=== PATIENT | male | born 1985 ===

== ENCOUNTER 2018-05-17 14:22 | Inpatient (IN) | payer SELFPAY ==
[~2018-05-17] VITALS: Ht 172.7 cm; Wt 94.8 kg
--- NOTE | 2018-05-17 14:34 | ER Report ---
History and Physical Time Seen By MD: 14:34 Hx. of Stated Complaint: DX WITH PANCREATITIS. HPI/ROS CHIEF COMPLAINT: Pancreatitis HISTORY OF PRESENT ILLNESS: 33-year-old male patient presents to emergency room with complaint of pancreatitis. Patient states that he woke up this morning having horrible abdominal pain. Patient states that seems to be more in the epigastric region. He denies having any pain anywhere else. He went to the urgent care and was evaluated there. He states that lab tests were done, EKG and was diagnosed with pancreatitis. He had a lipase of 9781. Patient also had an elevated white count 14,000. It was determined at that time that the patient should come here to the emergency room for further evaluation and likely admission. Patient denies any fevers or chills, nausea, vomiting or diarrhea. Patient states he last had something eat about 9:00 this morning. He has not taken any other medication. REVIEW OF SYSTEMS: Respiratory: No cough, no dyspnea. Cardiovascular: No chest pain, no palpitations. Gastrointestinal: As noted above Musculoskeletal: No back pain. Allergies: Coded Allergies: Penicillins (Verified Allergy, Unknown, 05/17/18) Home Meds No Active Prescriptions or Reported Meds Past Medical/Surgical History Patient has a past medical history of diabetes. Patient has no pertinent surgical history. Reviewed Nurses Notes: Yes Constitutional Vital Sign - Last 24 Hours 05/17/18 05/17/18 14:30 17:30 Temp 98.4 Pulse 97 85 Resp 20 20 B/P (MAP) 139/91 139/90 (106) Pulse Ox 94 94 O2 Delivery Room Air Physical Exam General Appearance: The patient is alert, has no immediate need for airway protection and no current signs of toxicity. Respiratory: Chest is non tender, lungs are clear to auscultation. Cardiac: regular rate and rhythm Gastrointestinal: Abdomen is soft and tender in the left upper quadrant, epigastric region, no masses, bowel sounds normal. Musculoskeletal: Neck: Neck is supple and non tender. Extremities have full range of motion and are non tender. Skin: No rashes or lesions. DIFFERENTIAL DIAGNOSIS: After history and physical exam differential diagnosis was considered for pancreatitis, choledocholithiasis. Medical Decision Making EKG/Imaging Imaging EXAMINATION: Limited right upper quadrant ultrasound Additional Pertinent history: Epigastric pain. COMPARISON STUDIES: CT exam pelvis done earlier in the day. FINDINGS: Gallbladder: no stones, sludge, wall thickening or pericholecystic fluid. Patient was tender during the exam. Liver: Upper limits normal size and 17.7 cm. Diffuse echogenic without a focal abnormality. Surface is smooth. Portal vein is patent. No ascites. Common duct: normal 2.8 mm. Pancreas: Obscured by bowel gas. Right kidney: negative Proximal IVC/Aorta: negative IMPRESSION: 1. Normal gallbladder and common bile duct. Patient was tender during the exam. 2. Liver diffuse echogenic consistent with fatty infiltration or chronic disease. No focal abnormality. 3. Pancreas obscured by bowel gas. Report Dictated By: Bladimir Gillis at 05/17/2018 5:19 PM Report E-Signed By: Bladimir Gillis at 05/17/2018 5:22 PM ABDOMEN/PELVIS WITH CONTRAST HISTORY: Abdominal pain. TECHNIQUE: CT abdomen and pelvis with intravenous contrast. One of the following dose optimization techniques was utilized in the performance of this exam: Automated exposure control; adjustment of the mA and/or kV according to the patient's size; or use of an iterative reconstruction technique. Specific details can be referenced in the facility's radiology CT exam operational policy. CONTRAST: 75 mL Isovue-370. COMPARISON: None. FINDINGS: Visualized lung bases: Negative. Hepatobiliary: Findings suggestive of hepatic steatosis. Otherwise negative. Spleen: Negative. Adrenals: Negative. Pancreas: Mild peripancreatic inflammation, compatible with acute pancreatitis. No focal fluid collections. No vascular abnormalities identified. Otherwise negative. Kidneys/: Negative. GI: There is scattered areas of chronic appearing fat attenuating wall thickening within the colon and distal ileum which are likely related to a remote chronic infectious/inflammatory process. No evidence for acute disease. Vessels/spaces/nodes: Negative. Bones/soft tissues: Negative. IMPRESSION: 1. Findings of uncomplicated acute pancreatitis. 2. Additional incidental/chronic findings, as above. Report Dictated By: Gilmer Bryant MD at 05/17/2018 3:33 PM Report E-Signed By: Gilmer Bryant MD at 05/17/2018 3:36 PM EXAMINATION: Limited right upper quadrant ultrasound Additional Pertinent history: Epigastric pain. COMPARISON STUDIES: CT exam pelvis done earlier in the day. FINDINGS: Gallbladder: no stones, sludge, wall thickening or pericholecystic fluid. Patient was tender during the exam. Liver: Upper limits normal size and 17.7 cm. Diffuse echogenic without a focal abnormality. Surface is smooth. Portal vein is patent. No ascites. Common duct: normal 2.8 mm. Pancreas: Obscured by bowel gas. Right kidney: negative Proximal IVC/Aorta: negative IMPRESSION: 1. Normal gallbladder and common bile duct. Patient was tender during the exam. 2. Liver diffuse echogenic consistent with fatty infiltration or chronic disease. No focal abnormality. 3. Pancreas obscured by bowel gas. Report Dictated By: Bladimir Gillis at 05/17/2018 5:19 PM Report E-Signed By: Bladimir Gillis at 05/17/2018 5:22 PM ED Course/Re-evaluation ED Course Patient was admitted to exam room, history and physical were obtained. D ifferential diagnosis was considered. On examination patient does have tenderness in the left upper quadrant, and epigastric area. With patient having lab work done at urgent care which indicated pancreatitis a CT scan of the abdomen and pelvis was done. Patient had an IV started and received 4 mg of morphine. Patient did have some nausea and vomiting. CT scan showed on-call located pancreatitis with inflammation being in the left upper quadrant and epigastric region. I discussed case with Dr. Gonzalez, hospitalist. He requested that a ultrasound of the gallbladder be done to make sure there is not any retained stones or blockage of the common bile duct. That was done which no gallstones, no sludge in the gallbladder. I discussed this with Dr. Gonzalez, who agreed to accept the patient for admission. I discussed this with the patient who verbalized understanding and agreement. Decision to Disposition Date: May 17, 2018 Decision to Disposition Time: 17:38 Depart Departure Latest Vital Signs Vital Signs Date Time Temp Pulse Resp B/P (MAP) Pulse Ox O2 Delivery O2 Flow Rate FiO2 05/17/18 17:30 85 20 139/90 (106) 94 Room Air 05/17/18 14:30 98.4 Impression: Primary Impression: Pancreatitis Additional Impression: Type 2 diabetes mellitus Condition: Condition Unchanged Disposition: Admitted from ER New Scripts No Active Prescriptions or Reported Meds Problem Qualifiers Primary Impression: Pancreatitis Chronicity: acute Pancreatitis type: unspecified pancreatitis type Acute pancreatitis complication: unspecified Qualified Codes: K85.90 - Acute pancreatitis without necrosis or infection, unspecified Additional Impression: Type 2 diabetes mellitus Diabetes mellitus intermodal owner operator truck driver insulin use: without intermodal owner operator truck driver use Diabetes mellitus complication status: without complication Qualified Codes: E11.9 - Type 2 diabetes mellitus without complications CELESTINO MARROQUIN May 17, 2018 14:34
[2018-05-17] MEDS ORDERED: MORPHINE 4 MG/ML SDV IVP ONE ×2 (14:40→15:45)
[2018-05-17] MEDS ORDERED: ONDANSETRON 4 MG/2 ML VIAL IVP ONE ×2 (14:40→16:00)
[2018-05-17] MEDS ORDERED: IOPAMIDOL 76% 75 ML INFUS BTL 75 ML ONE (14:55)
--- NOTE | 2018-05-17 15:40 | RADIOLOGY IMAGING REPORT ---
FACILITY: [facility] PATIENT NAME: John Engel : 1985 MR: [id number] V: [id number] EXAM DATE: [id number] ORDERING PHYSICIAN: CELESTINO MARROQUIN TECHNOLOGIST: Location: [facility] [place] Patient: John Engel : 1985 Visit/Account:[id number] Date of Sevice: 05/17/2018 ABDOMEN/PELVIS WITH CONTRAST HISTORY: Abdominal pain. TECHNIQUE: CT abdomen and pelvis with intravenous contrast. One of the following dose optimization techniques was utilized in the performance of this exam: Autom ated exposure control; adjustment of the mA and/or kV according to the patient's size; or use of an i terative reconstruction technique. Specific details can be referenced in the facility's radiology C T exam operational policy. CONTRAST: 75 mL Isovue-370. COMPARISON: None. FINDINGS: Visualized lung bases: Negative. Hepatobiliary: Findings suggestive of hepatic steatosis. Otherwise negative. Spleen: Negative. Adrenals: Negative. Pancreas: Mild peripancreatic inflammation, compatible with acute pancreatitis. No focal fluid colle ctions. No vascular abnormalities identified. Otherwise negative. Kidneys/: Negative. GI: There is scattered areas of chronic appearing fat attenuating wall thickening within the colon an d distal ileum which are likely related to a remote chronic infectious/inflammatory process. No evide nce for acute disease. Vessels/spaces/nodes: Negative. Bones/soft tissues: Negative. IMPRESSION: 1. Findings of uncomplicated acute pancreatitis. 2. Additional incidental/chronic findings, as above. Report Dictated By: Gilmer Bryant MD at 05/17/2018 3:33 PM Report E-Signed By: Gilmer Bryant MD at 05/17/2018 3:36 PM WSN:[id number]
--- NOTE | 2018-05-17 17:26 | RADIOLOGY IMAGING REPORT ---
FACILITY: [facility] - [place] PATIENT NAME: John Engel : 1985 MR: [id number] V: [id number] EXAM DATE: [id number] ORDERING PHYSICIAN: CELESTINO MARROQUIN TECHNOLOGIST: Location: [facility] [place] Patient: John Engel : 1985 Visit/Account:[id number] Date of Sevice: 05/17/2018 EXAMINATION: Limited right upper quadrant ultrasound Additional Pertinent history: Epigastric pain. COMPARISON STUDIES: CT exam pelvis done earlier in the day. FINDINGS: Gallbladder: no stones, sludge, wall thickening or pericholecystic fluid. Patient was tender during t he exam. Liver: Upper limits normal size and 17.7 cm. Diffuse echogenic without a focal abnormality. Surface i s smooth. Portal vein is patent. No ascites. Common duct: normal 2.8 mm. Pancreas: Obscured by bowel gas. Right kidney: negative Proximal IVC/Aorta: negative IMPRESSION: 1. Normal gallbladder and common bile duct. Patient was tender during the exam. 2. Liver diffuse echogenic consistent with fatty infiltration or chronic disease. No focal abnormalit y. 3. Pancreas obscured by bowel gas. Report Dictated By: Bladimir Gillis at 05/17/2018 5:19 PM Report E-Signed By: Bladimir Gillis at 05/17/2018 5:22 PM WSN:[id number]
[2018-05-17 18:27] VITALS: BP 132/92
[2018-05-17] MEDS ORDERED: HYDROmorphone PCA 6 MG/30 ML IV PRN (18:35)
[2018-05-17] MEDS ORDERED: NALOXONE HCL 0.4 MG/ML VIAL IVP PRN (18:45)
[2018-05-17] MEDS: NS(*) 0.9% 1000 ML BAG 1,000 ML IV PRN (18:53)
--- NOTE | 2018-05-17 18:54 | History & Physical ---
History of Present Illness Chief Complaint Abdominal pain History of Present Illness 33yo male with PMHx significant for diet controlled type 2 DM. He reports onset of severe abdominal pain early this AM. It is associated with poor appetite, but no N/V. He denies any fevers or chills. No hematemesis, hematochezia, melena. He denies any urinary symptoms. He does not take any medications (prescription or OTC). He does not drink alcohol or take any illicit drugs. He reports having a headache a few days ago, but denies any other problems in recent past. He was evaluated in the ER and found to have elevated lipase with CT findings consistent with acute pancreatitis. He was recommended for admission. History Problems: (1) Type 2 diabetes mellitus Status: Chronic Comment: Diet controlled Home Meds No Active Prescriptions or Reported Meds Allergies: Coded Allergies: Penicillins (Verified Allergy, Unknown, 05/17/18) Hx Smoking: No Caffeine Intake: Soda Caffeine/Cups Per Day: 1/day Hx Alcohol Use: No Hx Substance Use Disorder: No Social Drug Use: Never History of IV Drug Use: No Review of Systems Constitutional: No Fever, No Chills, No Night Sweats Neurological: No Syncope, No Weakness Eyes: No Vision Change, No Loss of Vision ENT: No Hearing Loss, No Sinus Congestion, No Sore Throat, No Ear Ache Cardiovascular: No Chest Pain, No Palpitations, No Orthostatic Hypotension Respiratory: No Shortness of Breath, No Cough, No Wheezing Gastrointestinal: No Nausea, No Vomiting, No Diarrhea, No Hematemesis, No Hematochezia, No Melena; Abdominal Pain Genitourinary: No Dysuria, No Hematuria, No Urinary Incontinence Musculoskeletal: No Sprain, No Strain, No Impaired Mobility Psychiatric: No Depression, No Anxiety Exam Vital Signs Vital Signs Date Time Temp Pulse Resp B/P (MAP) Pulse Ox O2 Delivery O2 Flow Rate FiO2 05/17/18 18:27 97.8 97 16 132/92 (105) 97 Room Air General Appearance: Alert, Awake Neuro: No Gross deficits Eyes: PERRLA, Other (sclera anicteric) ENT: Moist Mucous Membranes, Oropharynx Clear Neck: No Masses Cardiovascular: Regular Rate and Rhythm, No Edema, No JVD Respiratory: Clear to Auscultation Chest: No Tenderness GI: Other (Diffuse tenderness with some guarding/no rebound/BS present) : No CVA Tenderness Lymph: No Adenopathy Extremities: Warm, Perfused Integumentary: Skin Intact without Lesion / Mass Psych: Alert & Oriented X3 Medical Decision Making Data Points Item Value Date Time White Blood Count 14.0 k/uL H 05/17/18 1318 Hemoglobin 20.6 g/dL H 05/17/18 1318 Hematocrit 50.3 % 05/17/18 1318 Platelet Count 261 K/uL 05/17/18 1318 Sodium Level 134 mmol/L L 05/17/18 1318 Potassium Level 3.6 mmol/L 05/17/18 1318 Chloride Level 97 mmol/L L 05/17/18 1318 Carbon Dioxide Level 15 mmol/L L 05/17/18 1318 Blood Urea Nitrogen 10 mg/dl 05/17/18 1318 Creatinine 0.60 mg/dl L 05/17/18 1318 Glomerular Filtration Rate Calc > 60.0 05/17/18 1318 Random Glucose 351 mg/dl H 05/17/18 1318 Calcium Level 8.9 mg/dl 05/17/18 1318 Total Bilirubin 0.9 mg/dl 05/17/18 1318 Aspartate Amino Transf (AST/SGOT) 27 U/L 05/17/18 1318 Alanine Aminotransferase (ALT/SGPT) 57 U/L H 05/17/18 1318 Alkaline Phosphatase 151 U/L H 05/17/18 1318 Troponin I < 0.012 ng/ml 05/17/18 1318 Total Protein 8.6 g/dl H 05/17/18 1318 Albumin 3.8 g/dl 05/17/18 1318 Amylase Level 556 U/L H 05/17/18 1318 Lipase 9781 U/L H 05/17/18 1318 EKG / Imaging Imaging PATIENT NAME: John Engel : 1985 MR: [id number] V: [id number] EXAM DATE: ORDERING PHYSICIAN: CELESTINO MARROQUIN TECHNOLOGIST: Location: [facility] - [place] Patient: John Engel : 1985 Visit/Account:[id number] Date of Sevice: 05/17/2018 ABDOMEN/PELVIS WITH CONTRAST HISTORY: Abdominal pain. TECHNIQUE: CT abdomen and pelvis with intravenous contrast. One of the following dose optimization techniques was utilized in the performance of this exam: Automated exposure control; adjustment of the mA and/or kV according to the patient's size; or use of an iterative reconstruction technique. Specific details can be referenced in the facility's radiology CT exam operational policy. CONTRAST: 75 mL Isovue-370. COMPARISON: None. FINDINGS: Visualized lung bases: Negative. Hepatobiliary: Findings suggestive of hepatic steatosis. Otherwise negative. Spleen: Negative. Adrenals: Negative. Pancreas: Mild peripancreatic inflammation, compatible with acute pancreatitis. No focal fluid collections. No vascular abnormalities identified. Otherwise negative. Kidneys/: Negative. GI: There is scattered areas of chronic appearing fat attenuating wall thickening within the colon and distal ileum which are likely related to a remote chronic infectious/inflammatory process. No evidence for acute disease. Vessels/spaces/nodes: Negative. Bones/soft tissues: Negative. IMPRESSION: 1. Findings of uncomplicated acute pancreatitis. 2. Additional incidental/chronic findings, as above. Report Dictated By: Gilmer Bryant MD at 05/17/2018 3:33 PM Report E-Signed By: Gilmer Bryant MD at 05/17/2018 3:36 PM WSN:[id number] PATIENT NAME: John Engel : 1985 MR: [id number] V: [id number] EXAM DATE: [id number] ORDERING PHYSICIAN: CELESTINO MARROQUIN TECHNOLOGIST: Location: [facility] [place] Patient: John Engel : 1985 Visit/Account:[id number] Date of Sevice: 05/17/2018 EXAMINATION: Limited right upper quadrant ultrasound Additional Pertinent history: Epigastric pain. COMPARISON STUDIES: CT exam pelvis done earlier in the day. FINDINGS: Gallbladder: no stones, sludge, wall thickening or pericholecystic fluid. Patient was tender during the exam. Liver: Upper limits normal size and 17.7 cm. Diffuse echogenic without a focal abnormality. Surface is smooth. Portal vein is patent. No ascites. Common duct: normal 2.8 mm. Pancreas: Obscured by bowel gas. Right kidney: negative Proximal IVC/Aorta: negative IMPRESSION: 1. Normal gallbladder and common bile duct. Patient was tender during the exam. 2. Liver diffuse echogenic consistent with fatty infiltration or chronic disease. No focal abnormality. 3. Pancreas obscured by bowel gas. Report Dictated By: Bladimir Gillis at 05/17/2018 5:19 PM Report E-Signed By: Bladimir Gillis at 05/17/2018 5:22 PM WSN:[id number] Assessment and Plan Problems: (1) Acute pancreatitis Status: Acute Assessment & Plan: Unclear etiology. It does not appear to be alcohol or gallstone or medication related. Will place NPO, give generous IV fluids, try to control pain/nausea as needed. Will check triglyceride levels. Watch labs closely. (2) Type 2 diabetes mellitus Status: Chronic Assessment & Plan: He will be NPO for now. Monitor glucoses and use SSI as needed. Venous Thromboembolism Antithrombotics Is Pt On Any Antithrombotics?: Yes Exam Sepsis Risk: No Definite Risk Problem Qualifiers (1) Type 2 diabetes mellitus: Diabetes mellitus fci insulin use: without fci use Diabetes mellitus complication status: without complication Qualified Codes: E11.9 - Type 2 diabetes mellitus without complications KARISSA YOUSSEF MD May 17, 2018 18:54
[2018-05-17 20:00] VITALS: BP 125/82
[2018-05-17] MEDS: PROMETHAZINE 25 MG/ML 1 ML AMP IVP PRN (20:02)
[2018-05-17] MEDS: INSULIN HUM LISPRO 100 UN/ML 3 ML VIAL SUBQ PRN (23:12)
[2018-05-17 23:40] VITALS: BP 128/69
[2018-05-18] VITALS (7 sets, daily range): BP systolic 105–121; BP diastolic 70–86; Ht 172.7 cm; Wt 94.8 kg
[2018-05-18] MEDS: NS(*) 0.9% 1000 ML BAG 1,000 ML IV PRN ×3 (01:03→14:35)
[2018-05-18] MEDS: PROMETHAZINE 25 MG/ML 1 ML AMP IVP PRN (02:25)
[2018-05-18] MEDS: INSULIN HUM LISPRO 100 UN/ML 3 ML VIAL SUBQ PRN ×4 (05:53→23:50)
[2018-05-18 07:07] LABS: PLATELET COUNT, AUTOMATED 255 K/uL (150-450)
[2018-05-18] MEDS ORDERED: ENOXAPARIN 40 MG/0.4ML SYR SC SCH (09:00)
[2018-05-18] MEDS ORDERED: HYDROmorphone PCA 6 MG/30 ML IV PRN (09:30)
--- NOTE | 2018-05-18 10:46 | Hospitalist Progress Note ---
Subjective Progress Notes Subjective 33M admitted for pancreatitis.Reports unable to get any sleep because of pain. 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 Patient Complains of: Gastrointestinal: Nausea (+ abd pain) Physical Exam Vital Signs Date Time Temp Pulse Resp B/P (MAP) Pulse Ox O2 Delivery O2 Flow Rate FiO2 05/18/18 07:49 91 Room Air 05/18/18 07:47 98.9 115 16 119/74 (89) 05/18/18 02:31 1.0 Intake and Output 05/18/18 06:59 Intake Total 1100 ml Balance 1100 ml Intake Oral 100 ml IV Total 1000 ml # Voids 3 General Appearance: Alert, Awake, Afebrile (mild distress) Neuro: No Gross deficits Eyes: PERRLA ENT: Normal Neck: No Masses Cardiovascular: Normal Rhythm & Peripheral Pulses Respiratory: No Respiratory Distress GI: Other (tender to palpation) Musculoskeletal: No Weakness/Pain Extremities: Soft and Non Tender, Warm, Pulses, Perfused Integumentary: Skin Intact without Lesion / Mass Psych: Alert & Oriented X3 Result Diagram: 05/18/18 0639 Assessment and Plan Problems: (1) Acute pancreatitis Status: Acute Assessment & Plan: Due to hypertriglyceridemia. It does not appear to be alcohol or gallstone or medication related. Will place NPO, give generous IV fluids, try to control pain/nausea as needed. Triglyceride levels pending, unable to run labs in house 2/2 likely hypertriglyceridemia. If confirmed when able to take PO will start fenofibrate. (2) Hypertriglyceridemia Assessment & Plan: Presumed, await lab confirmation. Per lab unable to run samples of pt blood inhouse as it is " like a shake" in appearance. Will need fenofibrate when tolerating PO. (3) Type 2 diabetes mellitus Status: Chronic Assessment & Plan: He will be NPO for now. Monitor glucoses and use SSI as needed. Exam Sepsis Risk: No Definite Risk Problem Qualifiers (1) Type 2 diabetes mellitus: Diabetes mellitus fpc insulin use: without fpc use Diabetes mellitus complication status: without complication Qualified Codes: E11.9 - Type 2 diabetes mellitus without complications SONIA DURAN DO May 18, 2018 10:46
[2018-05-18] MEDS ORDERED: LR(*) 1000 ML BAG 1,000 ML IV PRN (18:25)
[2018-05-18] MEDS ORDERED: INSULIN GLARGINE 100 U/ML 3 ML PEN SUBQ SCH (21:00)
[2018-05-19 01:00] VITALS: BP 130/63
--- NOTE | 2018-05-19 01:15 | Hospitalist Depart ---
Discharge Summary Reason for Hosp/Final Diag: (1) Acute pancreatitis Status: Acute Hospital Course & Plan: Suspected due to hypertriglyceridemia, lab unable to run sample due to high lipid content. CT consistent with acute pancreatitis, US negative for gallstones or CBD dilatation patient is on no home medications. We are unable to monitor labs while the patient would be on an insulin drip and if apheresis were needed we do not have the capability. [facility] only does apheresis with heparin and there is a significant mortality benefit, if it were necessary, with citrate as anticoagulant during apheresis. Therefore, transfer to step down unit at [facility] has been arranged. (2) Hypertriglyceridemia Hospital Course & Plan: Presumed, labs are pending after having been sent to outside lab. Per lab unable to run samples of pt blood inhouse as it is " like a milkshake" in appearance. Treatment as above, correction will need fenofibrate. (3) Type 2 diabetes mellitus Status: Chronic Hospital Course & Plan: NPO, glucose increasing. SSI and was given 10U Lantus this evening. Unable to monitor labs on insulin drip therefor will transfer to facility where lab can be run in house. Departure Weight (Pounds): 209 Weight (Ounces): 6.0 Result Diagram: 05/18/18 0639 Condition: No Change Discharge Instructions Home Meds No Active Prescriptions or Reported Meds Venous Thromboembolism Antithrombotics Is Pt On Any Antithrombotics?: Yes SONIA DURAN DO May 19, 2018 01:15
== END 2018-05-19 01:40 | disposition short-term general hospital (02) | DRG 440 ==
LOC: ER 14:40 → MED 17:45
PROVIDERS: ADMIT Internal Medicine; ATTEND Internal Medicine
DX: K85.80 Other acute pancreatitis without necrosis or infection (principal); E78.1 Pure hyperglyceridemia; E11.65 Type 2 diabetes mellitus with hyperglycemia; Z88.0 Allergy status to penicillin
CPT/HCPCS: 36415; 36416; 74177; 76705; 80053; 82948; 83690; 84478; 85025; 96374; 96375; 96376; 99284; J1170; J1650; J1815; J2270; J2405; J2550; J7030; J7120; Q9967

== ENCOUNTER → 2018-05-17 | Outpatient (REF) | payer SELFPAY ==
[2018-05-17 13:44] LABS: PLATELET COUNT, AUTOMATED 261 K/uL (150-450)
== END ==
PROVIDERS: ATTEND Nurse Practitioner Family
DX: R07.9 Chest pain, unspecified (principal); R10.9 Unspecified abdominal pain
CPT/HCPCS: 82040; 82150; 82247; 82310; 82374; 82435; 82565; 82947; 83690; 84075; 84132; 84155; 84295; 84450; 84460; 84484; 84520; 85025

== ENCOUNTER → 2018-05-19 | Outpatient (CLI) | payer SELFPAY ==
[2018-05-18 10:06] VITALS: BMI 31.8
== END ==
LOC: AMB 01:33
PROVIDERS: ATTEND Nurse Practitioner
DX: B99.8 Other infectious disease (principal); R11.0 Nausea
CPT/HCPCS: A0425; A0426

== ENCOUNTER 2018-06-25 09:56 | Outpatient (RCR) | payer OTHER ==
[2018-05-18 10:06] VITALS: Ht 171.4 cm; Wt 88.0 kg
[~2018-06-25] VITALS: Ht 171.4 cm; Wt 88.0 kg
--- NOTE | 2018-06-25 16:37 | Medical Nutrition Therapy ---
Nutrition Anthropometrics Height (Inches): 67.50 Height (Calculated Centimeters: 171.415193 Weight (Pounds): 194 Weight (Calculated Kilograms): 87.665492 BMI: 30.0 Hossein Nutrition Score: Hossein Nutrition Risk Score: Dietary Referral Nutrition Risk Factors: Unplanned Loss >10lbs Nutrition Risk Comment: Physical Findings Physical Appearance: Obese BMI 30-39 Skin Appearance Skin Appearance: Edema Edema Location Modifier: Edema Location: Type of Edema: Degree of Edema: Gastrointestinal Symptoms GI Symtoms: Tube Present: Bowel Sounds: Recent Bowel Pattern: Stool Characteristics: Nutrition/Food History Good Alcohol Use: Never Nutritional Education Nutrition Education Topic: Diabetic Nutrition Learning Barriers: Hx Of Non-Compliance Learning Readiness: Eager, Interested Teaching Methods: Discussion, Handout, Demonstration Response to Teaching: Return demonstration, Verbalize understanding, Eros nforcement needed Teaching Recipient: Patient Nutrition Monitoring & Eval RD Patient Assessment Time: [address] Assessment Type: RD Education Nutritional Comment: 06/25/18 Pt diagnosed 4 years ago with T2DM. Recently discharged from hospital for pancreatitis, hypertriglyceridemia, and A1c higher than 16.0%. Pt interested in diabetes information and wt loss. Pt educated on importance of carbohydrate control at meals/snacks. Discussed meal plan consisting of approximately 9933-3604 Calories/day. Pt able to use food lists to plan simple meals with some assistance. Also encouraged way pt may increase activity to help BG control. Pt plans to attend diabetes classes. I personally spent a total of 90 minutes educating/counseling patient regarding T2DM and nutrtion therapy in a individual setting. See education section and my note above for details. Copies To Copies to: ANNIKA AMIN MD ; DARIAN GRIFFIN Jun 25, 2018 16:37
--- NOTE | 2018-07-02 20:58 | Medical Nutrition Therapy ---
Nutrition Anthropometrics Height (Inches): 67.50 Height (Calculated Centimeters: 171.487816 Weight (Pounds): 194 Weight (Calculated Kilograms): 87.618578 BMI: 30.0 Hossein Nutrition Score: Hossein Nutrition Risk Score: Dietary Referral Nutrition Risk Factors: Unplanned Loss >10lbs Nutrition Risk Comment: Physical Findings Physical Appearance: Obese BMI 30-39 Skin Appearance Skin Appearance: Edema Edema Location Modifier: Edema Location: Type of Edema: Degree of Edema: Gastrointestinal Symptoms GI Symtoms: Tube Present: Bowel Sounds: Recent Bowel Pattern: Stool Characteristics: Nutritional Education Nutrition Education Topic: Other Learning Readiness: Eager, Interested Teaching Methods: Discussion, Handout, Audiovisual Response to Teaching: Verbalize understanding Teaching Recipient: Patient Nutrition Monitoring & Eval RD Patient Assessment Time: [address] Assessment Type: RD Education Nutritional Comment: 06/25/18 Pt diagnosed 4 years ago with T2DM. Recently discharged from hospital for pancreatitis, hypertriglyceridemia, and A1c higher than 16.0%. Pt interested in diabetes information and wt loss. Pt educated on importance of carbohydrate control at meals/snacks. Discussed meal plan consisting of approximately 4344-5379 Calories/day. Pt able to use food lists to plan simple meals with some assistance. Also encouraged way pt may increase activity to help BG control. Pt plans to attend diabetes classes. I personally spent a total of 90 minutes educating/counseling patient regarding T2DM and nutrtion therapy in a individual setting. See education section and my note above for details. 07/02/18 Pt instructed on Living with Diabetes topics including foot care, manager intermediate complications, exercise, hypoglycemia, sick day care, etc. Pt appears interested in diabetes topics and able to answer questions regarding topics covered. I personally spent a total of 90 minutes educating/counseling patient regarding diabetes self-management in a group setting. See education section and my note above for details. Copies To Copies to: ANNIKA AMIN MD ; DARIAN GRIFFIN Jul 02, 2018 20:58
--- NOTE | 2018-07-03 10:22 | Medical Nutrition Therapy ---
Nutritional Education Nutrition Education Topic: Diabetic Nutrition Learning Readiness: Eager, Interested Teaching Methods: Discussion, Handout, Demonstration Response to Teaching: Verbalize understanding Teaching Recipient: Patient Nutrition Counseling: late entry for 07/02- Provided diabetic education in group setting focusing on nutrition. Reviewed role of CHO, protein and fat. Glycemic response to CHO and Glycemic index. Reviewed carb counting, plate method. Discussed pros/cons of alternative acceptable diets like Mediterranean, Weight Watchers, Atkins that could be discussed in more detail with individuals upon request. Reviewed Heart healthy diet. Reviewed reading labels. Discussed alcohol effects on diabetes and recommended limits. Discussed eating out and controlling BG. Nutrition Monitoring & Eval RD Patient Assessment Time: [address] Assessment Type: RD Education Nutritional Comment: 07/02- provided 60 minute of diabetes education focusing on nutrtion. WINSTON ENGLISH Jul 03, 2018 10:22
== END 2018-07-30 ==
LOC: DIET 09:56
PROVIDERS: ATTEND Family Medicine
DX: Z71.3 Dietary counseling and surveillance (principal); E11.69 Type 2 diabetes mellitus with other specified complication; Z79.4 Long term (current) use of insulin; Z79.84 Long term (current) use of oral hypoglycemic drugs
CPT/HCPCS: G0108; G0109

== ENCOUNTER → 2018-08-25 | Outpatient (CLI) | payer OTHER ==
[2018-05-18 10:06] VITALS: BMI 31.8
--- NOTE | 2018-08-25 10:14 | RADIOLOGY IMAGING REPORT ---
FACILITY: [facility] PATIENT NAME: John Engel : 1985 MR: [id number] V: [id number] EXAM DATE: ORDERING PHYSICIAN: ANNIKA AMIN TECHNOLOGIST: Location: [facility] [place] Patient: John Engel : 1985 Visit/Account:[id number] Date of Sevice: 08/25/2018 Exam type: US VENOUS DOPPLER - UPPER EXT RT History: History of DVT in April 2018 Comparison: None. Findings: Right internal jugular vein, subclavian vein, axillary vein, brachial vein, basilic vein, cephalic ve in, radial vein and ulnar veins were imaged demonstrating no evidence of intraluminal thrombi. The v eins were compressible and demonstrated augmentation IMPRESSION: 1. No sonographic evidence of DVT involving the right upper extremity veins Report Dictated By: Kathy Iglesias MD at 08/25/2018 10:08 AM Report E-Signed By: Kathy Iglesias MD at 08/25/2018 10:10 AM WSN:[email or web address]
== END ==
LOC: US 09:13
PROVIDERS: ATTEND Family Medicine
DX: I82.C11 Acute embolism and thrombosis of right internal jugular vein (principal)

== ENCOUNTER → 2018-10-29 | Outpatient (REF) | payer OTHER ==
[2018-05-18 10:06] VITALS: BMI 31.8
== END ==
LOC: ZZSENDIN 17:05
PROVIDERS: ATTEND Family Medicine
DX: K85.80 Other acute pancreatitis without necrosis or infection (principal); E78.1 Pure hyperglyceridemia
CPT/HCPCS: 83690